=== PATIENT | female | born 1970 | race Caucasian/White ===

== ENCOUNTER 2018-03-10 16:15 | Emergency (ER) | payer MEDICARE, OTHER ==
[~2018-03-10] VITALS: Ht 160 cm; Wt 124.0 kg
[~2018-03-10 16:15] MED LIST: ALBU8HFA PO; CLIN300C85 PO; CYCL-1 PO; DICL-194 PO; DULO60CA64 PO; GUAI120018 PO; HYDR-3965 PO; LEVO150T8 PO; PANT-47 PO; VAL5T PO
[2018-03-10 16:52] LABS: BASOPHILS # (AUTO) 0.1 X10'3 (0-0.2); BASOPHILS % (AUTO) 1.3 % (0-1); EOSINOPHILS # (AUTO) 0.2 X10'3 (0-0.9); EOSINOPHILS % (AUTO) 2.1 % (0-6); HEMATOCRIT 40.9 % (35.0-45.0); HEMOGLOBIN 13.6 g/dl (12.0-16.0); LYMPHOCYTES # (AUTO) 2.9 X10'3 (1.1-4.8); LYMPHOCYTES % (AUTO) 33.5 % (21-51); MEAN CORPUSCULAR HEMOGLOBIN 28.7 PG (27.0-31.0); MEAN CORPUSCULAR HGB CONC 33.2 % (33.0-36.5); MEAN CORPUSCULAR VOLUME 86.3 FL (78-98); MEAN PLATELET VOLUME 7.5 FL (7.4-10.4); MONOCYTES # (AUTO) 0.4 X10'3 (0-0.9); MONOCYTES % (AUTO) 4.8 % (2-12); NEUTROPHILS # (AUTO) 5.1 X10'3 (1.8-7.7); NEUTROPHILS % (AUTO) 58.3 % (42-75); PLATELET COUNT 241 X10'3 (140-440); RED BLOOD COUNT 4.74 X10'6 (4.20-5.60); RED CELL DISTRIBUTION WIDTH 15.5 % (11.5-14.5); WHITE BLOOD COUNT 8.7 X10'3 (4.5-11.0)
[2018-03-10 16:59] LABS: PROTHROMBIN TIME 10.6 SECONDS (9.0-12.0)
[2018-03-10 17:05] LABS: ALANINE AMINOTRANSFERASE 35 U/L (12-78); ALBUMIN 3.5 G/DL (3.4-5.0); ALBUMIN/GLOBULIN RATIO 0.9 (1.1-1.5); ALKALINE PHOSPHATASE 119 IU/L (46-116); ANION GAP 11 (8-16); ASPARTATE AMINO TRANSFERASE 28 U/L (10-37); BILIRUBIN,TOTAL 0.3 MG/DL (0.1-1.0); BLOOD UREA NITROGEN 8 MG/DL (7-18); BUN/CREATININE RATIO 6.6 (6.6-38.0); CHLORIDE 100 MMOL/L (99-107); CREATININE 1.22 MG/DL (0.40-0.90); GLUCOSE 163 MG/DL (70-104); POTASSIUM 4.3 MMOL/L (3.5-5.1); SODIUM 138 MMOL/L (135-145); TOTAL CARBON DIOXIDE 27.2 MMOL/L (24-32); TOTAL PROTEIN 7.3 G/DL (6.4-8.2); eGFR 47 ML/MIN
[2018-03-10 17:14] LABS: CLARITY,URINE CLEAR (Clear); COLOR,URINE YELLOW (Yellow); GLUCOSE, URINE NEGATIVE (Neg); KETONES,URINE NEGATIVE (Neg); LEUKOCYTE ESTERASE ,URINE NEGATIVE (Neg); NITRITES, URINE NEGATIVE (Neg); OCCULT BLOOD,URINE NEGATIVE (Neg); PROTEIN,URINE NEGATIVE (Neg); UROBILINOGEN,URINE 0.2 E.U/dL (0.2-1.0)
[2018-03-10 17:16] LABS: URINE HCG NEGATIVE (NEG)
[2018-03-10 17:17] VITALS: BP 146/63
[2018-03-10 17:17] LABS: UA COLLECTION TYPE CLN CATCH MIDSTREAM
[2018-03-10] MEDS ORDERED: ondansetron/PF 4mg/2ml inj IV ONE (18:25)
[2018-03-10] MEDS ORDERED: morphine 4 MG/ML inj SYRINge IV ONE (18:25)
[2018-03-10] MEDS ORDERED: normal saline 1000ML IV soln IVB ONE (18:25)
[2018-03-10] MEDS ORDERED: LIDOcaine Viscous 15ml cup MM STA (18:37)
[2018-03-10] MEDS ORDERED: pantoprazole 40 MG vial IV ONE (18:40)
[2018-03-10] MEDS ORDERED: dicyclomine 10mg/ml 2ml ampule IM ONE (18:40)
[2018-03-10] MEDS ORDERED: mag hydrox/Alum hydrox/simeth 30ml oral suspension PO ONE (18:40)
[2018-03-10 22:22] LABS: OCCULT BLOOD STOOL NEGATIVE (Neg)
== END 2018-03-10 21:29 | disposition home or self-care (01) ==
LOC: ER 16:15
DX: K29.00 Acute gastritis without bleeding (principal); R10.13 Epigastric pain; K64.8 Other hemorrhoids; K64.4 Residual hemorrhoidal skin tags; I10 Essential (primary) hypertension; J44.9 Chronic obstructive pulmonary disease, unspecified; E11.9 Type 2 diabetes mellitus without complications; G89.29 Other chronic pain; F12.90 Cannabis use, unspecified, uncomplicated; Z90.49 Acquired absence of other specified parts of digestive tract; Z90.710 Acquired absence of both cervix and uterus; Z98.890 Other specified postprocedural states; Z88.0 Allergy status to penicillin; Z88.1 Allergy status to other antibiotic agents; Z79.2 Long term (current) use of antibiotics; Z79.899 Other long term (current) drug therapy
CPT/HCPCS: 36415; 71045; 74176; 80053; 81003; 81025; 82272; 84484; 85025; 85610; 93005; 96361; 96372; 96374; 96375; 99285; C9113; J0500; J2270; J2405; J7030

== ENCOUNTER 2018-04-12 15:10 | Emergency (ER) | payer MEDICARE, OTHER ==
[~2018-04-12] VITALS: Ht 160 cm; Wt 124.5 kg
[2018-04-12] MEDS ORDERED: epiNEPHrine 1 mg/ml inj SQ STA (15:19)
[2018-04-12] MEDS ORDERED: methylPREDNISolone sod succ 125mg/2ml vial IV ONE (15:20)
[2018-04-12] MEDS ORDERED: normal saline 1000ML IV soln IVB ONE (15:20)
[2018-04-12] MEDS ORDERED: diphenhydrAMINE 50 mg/ml inj IV ONE (15:20)
[2018-04-12 15:39] LABS: BASOPHILS # (AUTO) 0.1 X10'3 (0-0.2); BASOPHILS % (AUTO) 1.2 % (0-1); EOSINOPHILS # (AUTO) 0.2 X10'3 (0-0.9); EOSINOPHILS % (AUTO) 2.1 % (0-6); HEMATOCRIT 39.4 % (35.0-45.0); HEMOGLOBIN 13.3 g/dl (12.0-16.0); LYMPHOCYTES # (AUTO) 2.7 X10'3 (1.1-4.8); LYMPHOCYTES % (AUTO) 29.6 % (21-51); MEAN CORPUSCULAR HEMOGLOBIN 28.4 PG (27.0-31.0); MEAN CORPUSCULAR HGB CONC 33.7 % (33.0-36.5); MEAN CORPUSCULAR VOLUME 84.3 FL (78-98); MONOCYTES # (AUTO) 0.7 X10'3 (0-0.9); MONOCYTES % (AUTO) 7.4 % (2-12); NEUTROPHILS # (AUTO) 5.5 X10'3 (1.8-7.7); NEUTROPHILS % (AUTO) 59.7 % (42-75); PLATELET COUNT 228 X10'3 (140-440); RED BLOOD COUNT 4.67 X10'6 (4.20-5.60); RED CELL DISTRIBUTION WIDTH 15.6 % (11.5-14.5); WHITE BLOOD COUNT 9.2 X10'3 (4.5-11.0)
[2018-04-12] MEDS ORDERED: normal saline 1000ML IV soln IV ONE (15:40)
[2018-04-12] MEDS ORDERED: tranexamic acid 100mg/ml inj. IV ONE (15:40)
[2018-04-12] MEDS ORDERED: tranexamic acid inj. 1,250 MG in normal saline 100ml IV soln 100 ML IV ONE (15:45)
[2018-04-12] MEDS ORDERED: iohexol 300mg/ml 100ml inj. ONE (15:53)
[2018-04-12 15:56] LABS: ALANINE AMINOTRANSFERASE 30 U/L (12-78); ALBUMIN 3.4 G/DL (3.4-5.0); ALBUMIN/GLOBULIN RATIO 0.9 (1.1-1.5); ALKALINE PHOSPHATASE 113 IU/L (46-116); ANION GAP 10 (8-16); ASPARTATE AMINO TRANSFERASE 18 U/L (10-37); BILIRUBIN,TOTAL 0.4 MG/DL (0.1-1.0); BLOOD UREA NITROGEN 6 MG/DL (7-18); BUN/CREATININE RATIO 5.4 (6.6-38.0); CALCIUM 9.1 MG/DL (8.5-10.1); CHLORIDE 99 MMOL/L (99-107); CREATININE 1.11 MG/DL (0.40-0.90); GLUCOSE 147 MG/DL (70-104); SODIUM 136 MMOL/L (135-145); TOTAL CARBON DIOXIDE 26.8 MMOL/L (24-32); TOTAL PROTEIN 7.3 G/DL (6.4-8.2); eGFR 53 ML/MIN
[2018-04-12] MEDS ORDERED: morphine 4 MG/ML inj SYRINge IV ONE (16:05)
[2018-04-12] MEDS ORDERED: famotidine/PF 10 mg/ml inj IV ONE (16:50)
[2018-04-12 17:25] VITALS: BP 124/70
[2018-04-12] MEDS ORDERED: ketorolac trometh. 30mg/ml inj. IV ONE (17:25)
[2018-04-12] MEDS ORDERED: CLIN150C2 PO (17:30)
[2018-04-12] MEDS ORDERED: HYDR-569 PO (17:30)
[2018-04-12] MEDS ORDERED: clindamycin phosphate inj 600 MG in normal saline 50ml IV soln 50 ML IV ONE (17:30)
[2018-04-12] MEDS ORDERED: ONDA4TAB9 SL (17:30)
[2018-04-12] MEDS ORDERED: clindamycin 600mg/D5W 50ml 50 ML IV ONE (17:40)
== END 2018-04-12 18:25 | disposition home or self-care (01) ==
LOC: ER 15:11
DX: K04.7 Periapical abscess without sinus (principal); K05.30 Chronic periodontitis, unspecified; I10 Essential (primary) hypertension; J44.9 Chronic obstructive pulmonary disease, unspecified; E11.9 Type 2 diabetes mellitus without complications; G89.29 Other chronic pain; M54.9 Dorsalgia, unspecified; F12.90 Cannabis use, unspecified, uncomplicated; Z90.710 Acquired absence of both cervix and uterus; Z90.49 Acquired absence of other specified parts of digestive tract; Z88.1 Allergy status to other antibiotic agents; Z88.0 Allergy status to penicillin
CPT/HCPCS: 36415; 70487; 71045; 80053; 83605; 83880; 84484; 85025; 87040; 93005; 96365; 96367; 96372; 96375; 99285; J0171; J1200; J1885; J2270; J2930; J3490; J7030; Q9967; 99291; J7040

== ENCOUNTER 2018-05-11 14:22 | Emergency (ER) | payer MEDICARE, OTHER ==
[~2018-05-11] VITALS: Ht 157.5 cm; Wt 122.6 kg
[~2018-05-11 14:22] MED LIST changes: +HYDR-569 PO
[2018-05-11 15:04] LABS: URINE HCG NEGATIVE (NEG)
[2018-05-11 15:05] LABS: CLARITY,URINE CLOUDY (Clear); COLOR,URINE YELLOW (Yellow); GLUCOSE, URINE NEGATIVE (Neg); KETONES,URINE NEGATIVE (Neg); LEUKOCYTE ESTERASE ,URINE LARGE (Neg); NITRITES, URINE POSITIVE (Neg); OCCULT BLOOD,URINE LARGE (Neg); PROTEIN,URINE 30 mg/dl (Neg); UA COLLECTION TYPE CLN CATCH MIDSTREAM; UROBILINOGEN,URINE 0.2 E.U/dL (0.2-1.0)
[2018-05-11 15:17] LABS: WBC,URINE TNTC /HPF (0-4)
[2018-05-11 15:18] LABS: RBC,URINE NONE SEEN /HPF (0-2)
[2018-05-11 15:19] LABS: BACTERIA,URINE 3+ /HPF (Neg)
[2018-05-11 15:20] LABS: SQUAMOUS EPITHELIAL CELL,UR FEW /LPF (FEW)
[2018-05-11] MEDS ORDERED: ketorolac tromethamine 15mg/ml inj. IV ONE (15:20)
[2018-05-11] MEDS ORDERED: normal saline 1000ML IV soln IVB ONE (15:20)
[2018-05-11 15:50] LABS: BASOPHILS % (AUTO) 0.5 % (0-1); EOSINOPHILS # (AUTO) 0.2 X10'3 (0-0.9); EOSINOPHILS % (AUTO) 2.2 % (0-6); HEMATOCRIT 37.5 % (35.0-45.0); HEMOGLOBIN 12.4 g/dl (12.0-16.0); LYMPHOCYTES # (AUTO) 1.7 X10'3 (1.1-4.8); LYMPHOCYTES % (AUTO) 18.1 % (21-51); MEAN CORPUSCULAR HEMOGLOBIN 28.1 PG (27.0-31.0); MEAN CORPUSCULAR VOLUME 85.1 FL (78-98); MEAN PLATELET VOLUME 7.3 FL (7.4-10.4); MONOCYTES # (AUTO) 0.5 X10'3 (0-0.9); MONOCYTES % (AUTO) 5.6 % (2-12); NEUTROPHILS % (AUTO) 73.6 % (42-75); PLATELET COUNT 206 X10'3 (140-440); RED BLOOD COUNT 4.41 X10'6 (4.20-5.60); RED CELL DISTRIBUTION WIDTH 15.8 % (11.5-14.5); WHITE BLOOD COUNT 9.5 X10'3 (4.5-11.0)
[2018-05-11] MEDS ORDERED: sulfamethoxazole/trimethoprim DS (800/160mg) tablet PO ONE (15:55)
[2018-05-11] MEDS ORDERED: SULF1TAB49 PO (15:59)
[2018-05-11 16:07] LABS: ALANINE AMINOTRANSFERASE 24 U/L (12-78); ALBUMIN 3.3 G/DL (3.4-5.0); ALBUMIN/GLOBULIN RATIO 0.9 (1.1-1.5); ALKALINE PHOSPHATASE 114 IU/L (46-116); ANION GAP 9 (8-16); ASPARTATE AMINO TRANSFERASE 28 U/L (10-37); BILIRUBIN,TOTAL 0.4 MG/DL (0.1-1.0); BLOOD UREA NITROGEN 10 MG/DL (7-18); BUN/CREATININE RATIO 10.2 (6.6-38.0); CALCIUM 8.8 MG/DL (8.5-10.1); CHLORIDE 101 MMOL/L (99-107); CREATININE 0.98 MG/DL (0.40-0.90); GLUCOSE 152 MG/DL (70-104); POTASSIUM 4.2 MMOL/L (3.5-5.1); SODIUM 137 MMOL/L (135-145); TOTAL CARBON DIOXIDE 27.4 MMOL/L (24-32); eGFR 61 ML/MIN
[2018-05-11] MEDS ORDERED: POLY17PO10 PO (16:31)
[2018-05-11] MEDS ORDERED: magnesium citrate 296ml oral solution PO ONE (16:35)
[2018-05-11 16:43] VITALS: BP 165/83
== END 2018-05-11 16:57 | disposition home or self-care (01) ==
LOC: ER 14:22
DX: N10 Acute pyelonephritis (principal); K59.00 Constipation, unspecified; R10.84 Generalized abdominal pain; R10.31 Right lower quadrant pain; I10 Essential (primary) hypertension; J44.9 Chronic obstructive pulmonary disease, unspecified; E11.9 Type 2 diabetes mellitus without complications; G89.29 Other chronic pain; F12.90 Cannabis use, unspecified, uncomplicated; Z90.49 Acquired absence of other specified parts of digestive tract; Z90.710 Acquired absence of both cervix and uterus; Z98.890 Other specified postprocedural states; Z88.0 Allergy status to penicillin; Z88.1 Allergy status to other antibiotic agents; Z79.899 Other long term (current) drug therapy
CPT/HCPCS: 36415; 80053; 81001; 81025; 83605; 85025; 87077; 87088; 87186; 96374; 99284; J1885

== ENCOUNTER 2018-11-25 14:03 | Emergency (ER) | payer MEDICARE, OTHER ==
[~2018-11-25] VITALS: Ht 160 cm; Wt 122.7 kg
[~2018-11-25 14:03] MED LIST changes: +CLIN-96 PO; -CLIN300C85 PO; +HYDR-4383 PO; -HYDR-569 PO
[2018-11-25 15:02] LABS: BASOPHILS % (AUTO) 0.6 % (0-1); EOSINOPHILS # (AUTO) 0.1 X10'3 (0-0.9); EOSINOPHILS % (AUTO) 1.7 % (0-6); HEMATOCRIT 34.9 % (35.0-45.0); HEMOGLOBIN 11.8 g/dl (12.0-16.0); LYMPHOCYTES # (AUTO) 2.2 X10'3 (1.1-4.8); LYMPHOCYTES % (AUTO) 29.6 % (21-51); MEAN CORPUSCULAR HGB CONC 33.8 g/dL (33.0-36.5); MEAN CORPUSCULAR VOLUME 85.8 FL (78-98); MEAN PLATELET VOLUME 7.4 FL (7.4-10.4); MONOCYTES # (AUTO) 0.5 X10'3 (0-0.9); MONOCYTES % (AUTO) 6.8 % (2-12); NEUTROPHILS # (AUTO) 4.6 X10'3 (1.8-7.7); NEUTROPHILS % (AUTO) 61.3 % (42-75); PLATELET COUNT 177 X10'3 (140-440); RED BLOOD COUNT 4.06 X10'6 (4.20-5.60); RED CELL DISTRIBUTION WIDTH 16.5 % (11.5-14.5); WHITE BLOOD COUNT 7.5 X10'3 (4.5-11.0)
[2018-11-25 15:06] LABS: PARTIAL THROMBOPLASTIN TIME 28 SECONDS (22-32)
[2018-11-25 15:09] LABS: ALANINE AMINOTRANSFERASE 40 U/L (12-78); ALBUMIN 2.9 G/DL (3.4-5.0); ALBUMIN/GLOBULIN RATIO 0.8 (1.1-1.5); ALKALINE PHOSPHATASE 119 IU/L (46-116); ANION GAP 8 (8-16); ASPARTATE AMINO TRANSFERASE 218 U/L (10-37); BILIRUBIN,TOTAL 0.2 MG/DL (0.1-1.0); BLOOD UREA NITROGEN 14 MG/DL (7-18); BUN/CREATININE RATIO 12.8 (6.6-38.0); CALCIUM 8.5 MG/DL (8.5-10.1); CHLORIDE 98 MMOL/L (99-107); CREATININE 1.09 MG/DL (0.40-0.90); GLUCOSE 295 MG/DL (70-104); POTASSIUM 4.2 MMOL/L (3.5-5.1); SODIUM 135 MMOL/L (135-145); TOTAL CARBON DIOXIDE 29.3 MMOL/L (24-32); TOTAL PROTEIN 6.4 G/DL (6.4-8.2); eGFR 54 ML/MIN
[2018-11-25 15:11] LABS: TROPONIN I < 0.04 NG/ML (0.0-0.05)
--- NOTE | 2018-11-25 15:53 | NUR ---
Stroke alert called off at [address] Echeverria.
[2018-11-25 16:55] LABS: URINE AMPHETAMINE SCREEN NEGATIVE (Neg); URINE BARBITUATE SCREEN NEGATIVE (Neg); URINE BENZODIAZEPINES SCREEN POSITIVE (Neg); URINE CANNABINOID SCREEN POSITIVE (Neg); URINE COCAINE SCREEN NEGATIVE (Neg); URINE METHADONE SCREEN NEGATIVE (Neg); URINE OPIATE SCREEN POSITIVE (Neg); URINE PHENCYCLIDINE SCREEN NEGATIVE (Neg)
[2018-11-25] MEDS ORDERED: normal saline 1000ML IV soln IVB ONE (17:05)
[2018-11-25 17:42] VITALS: BP 116/73
[2018-11-25] MEDS ORDERED: ketorolac trometh. 30mg/ml inj. IV ONE (17:45)
[2018-11-25] MEDS ORDERED: proCHLORperazine 10 MG/2 ml inj IV ONE (17:45)
[2018-11-25] MEDS ORDERED: METF750T2 PO (17:59)
[2018-11-25] MEDS ORDERED: GLYB5TAB7 PO (17:59)
--- NOTE | 2018-11-25 18:18 | NUR ---
CALLED [facility] @ 18:16 FOR RIDE HOME
== END 2018-11-25 18:37 | disposition home or self-care (01) ==
LOC: ER 14:03
DX: E11.65 Type 2 diabetes mellitus with hyperglycemia (principal); R51 Headache; R53.1 Weakness; E78.00 Pure hypercholesterolemia, unspecified; I10 Essential (primary) hypertension; G89.29 Other chronic pain; F12.90 Cannabis use, unspecified, uncomplicated; Z91.14 Patient's other noncompliance with medication regimen; Z90.710 Acquired absence of both cervix and uterus; Z98.890 Other specified postprocedural states; Z88.0 Allergy status to penicillin; Z88.1 Allergy status to other antibiotic agents; Z79.899 Other long term (current) drug therapy
CPT/HCPCS: 36415; 70450; 71045; 80053; 80305; 82948; 84484; 85025; 85610; 85730; 93005; 96374; 96375; 99284; J0780; J1885; J7030; 96361

== ENCOUNTER 2019-05-09 13:42 | Emergency (ER) | payer MEDICARE, OTHER ==
[~2019-05-09] VITALS: Ht 160 cm; Wt 97.7 kg
[~2019-05-09 13:42] MED LIST changes: +CLIN-90 PO; -CLIN-96 PO; -DULO60CA64 PO; +DULO60CA65 PO; +GLYB5TAB7 PO
[2019-05-09 14:03] VITALS: BP 130/86
== END 2019-05-09 14:43 | disposition home or self-care (01) ==
LOC: ER 13:43
DX: L02.811 Cutaneous abscess of head [any part, except face] (principal); L65.8 Other specified nonscarring hair loss; L73.8 Other specified follicular disorders; E78.00 Pure hypercholesterolemia, unspecified; I10 Essential (primary) hypertension; J44.9 Chronic obstructive pulmonary disease, unspecified; E11.9 Type 2 diabetes mellitus without complications; G89.29 Other chronic pain; F12.90 Cannabis use, unspecified, uncomplicated; Z90.49 Acquired absence of other specified parts of digestive tract; Z90.710 Acquired absence of both cervix and uterus; Z98.890 Other specified postprocedural states; Z88.0 Allergy status to penicillin; Z88.1 Allergy status to other antibiotic agents; Z79.899 Other long term (current) drug therapy
CPT/HCPCS: 99281

== ENCOUNTER 2022-07-15 07:17 | Day surgery (SDC) | payer MEDICARE ==
[~2022-07-15] VITALS: Ht 160 cm; Wt 89.1 kg
[2022-07-15] VITALS (10 sets, daily range): BP systolic 130–148; BP diastolic 64–83
[~2022-07-15 07:17] MED LIST changes: +ASPI-1071 PO; +ATOR-2 PO; -CLIN-90 PO; -CYCL-1 PO; +DAPA10TA PO; -DICL-194 PO; -DULO60CA65 PO; +GABA600T13 PO; -GLYB5TAB7 PO; -GUAI120018 PO; -HYDR-3965 PO; -HYDR-4383 PO; +METF-1203 PO; +OXYC1TAB17 PO; -PANT-47 PO; +PANT40TA54 PO; +SERT-434 PO; -VAL5T PO
[2022-07-15] MEDS ORDERED: diphenhydrAMINE 25mg capsule PO PRN (07:35)
[2022-07-15] MEDS ORDERED: normal saline 1,000 ML IV SCH (07:35)
[2022-07-15] MEDS ORDERED: LORazepam 0.5 MG tablet PO PRN (07:35)
[2022-07-15] MEDS ORDERED: SUPER BEET PO (07:54)
[2022-07-15] MEDS ORDERED: LOSA25TA96 PO (07:54)
[2022-07-15] MEDS ORDERED: SUCR1TAB PO (07:54)
[2022-07-15] MEDS ORDERED: NITR0.4T51 SL (07:54)
[2022-07-15] MEDS ORDERED: ALBU18HF2 INH (07:54)
[2022-07-15 08:28] LABS: BASOPHILS # (AUTO) 0.1 X10'3 (0-0.2); BASOPHILS % (AUTO) 0.5 % (0-1); EOSINOPHILS # (AUTO) 0.2 X10'3 (0-0.9); EOSINOPHILS % (AUTO) 1.6 % (0-6); HEMATOCRIT 47.1 % (35.0-45.0); LYMPHOCYTES # (AUTO) 2.8 X10'3 (1.1-4.8); LYMPHOCYTES % (AUTO) 26.7 % (21-51); MEAN CORPUSCULAR HEMOGLOBIN 30.7 PG (27.0-31.0); MEAN CORPUSCULAR HGB CONC 33.9 g/dL (33.0-36.5); MEAN CORPUSCULAR VOLUME 90.6 FL (78-98); MEAN PLATELET VOLUME 8.1 FL (7.4-10.4); MONOCYTES # (AUTO) 0.7 X10'3 (0-0.9); MONOCYTES % (AUTO) 6.8 % (2-12); NEUTROPHILS # (AUTO) 6.6 X10'3 (1.8-7.7); NEUTROPHILS % (AUTO) 64.4 % (42-75); PLATELET COUNT 193 X10'3 (140-440); RED CELL DISTRIBUTION WIDTH 14.1 % (11.5-14.5); WHITE BLOOD COUNT 10.3 X10'3 (4.5-11.0)
[2022-07-15 08:30] LABS: ALBUMIN 3.9 G/DL (3.4-5.0); BLOOD UREA NITROGEN 20 MG/DL (7-18); BUN/CREATININE RATIO 22.7 (6.6-38.0); CALCIUM 9.2 MG/DL (8.5-10.1); CREATININE 0.88 MG/DL (0.40-0.90); GLUCOSE 139 MG/DL (70-104); TOTAL CARBON DIOXIDE 28.2 MMOL/L (24-32); eGFR 68 ML/MIN
[2022-07-15 08:34] LABS: APTT 29 SECONDS (22-32)
--- NOTE | 2022-07-15 09:30 | NUR ---
Pt c/o 11/16 jaw pain and chest heaviness. States this is what she's been having at home. Called to lab courier and spoke to Millicent LOZANO. Millicent states to get an EKG and call with results (notified her we just did the EKG about 15mins before this event but still wants a new one). EKG shows NSR. CAlled results to Millicent, no further orders from Dr. Moy
--- NOTE | 2022-07-15 09:45 | NUR ---
Vital signs remain stable. BP 130s/70s, HR ranging from high 40s to mid 60s.
--- NOTE | 2022-07-15 10:15 | NUR ---
Pt states pain has resolved.
[2022-07-15] MEDS ORDERED: fentaNYL/PF 50MCG/1 ML 2ML syringe ONE (10:47)
[2022-07-15] MEDS ORDERED: heparin 1,000unit/ml 10ml vial 10 ML ONE (10:47)
[2022-07-15] MEDS ORDERED: midazolam 1 mg/ML 2ml injection ONE (10:47)
[2022-07-15] MEDS ORDERED: nitroGLYCERIN-Tridil 50MG/D5W 250 ML IV ONE (10:47)
[2022-07-15] MEDS ORDERED: iohexol 350MG/ML 100ml bottle IV ONE (10:47)
[2022-07-15] MEDS ORDERED: verapamil 2.5 mg/ml inj IV ONE (10:47)
[2022-07-15] MEDS ORDERED: LIDOcaine 1% (10mg/ml) 2ml vial ONE (10:48)
[2022-07-15 11:49] LABS: ANION GAP 9 (8-16); CHLORIDE 101 MMOL/L (99-107); POTASSIUM 4.2 MMOL/L (3.5-5.1); SODIUM 138 MMOL/L (135-145)
[2022-07-15 11:54] LABS: ISTAT HGB ART 14.3 g/dl (12.0-16.0); ISTAT Hct ART 42 %PCV (35-45); ISTAT O2 SATURATION ARTERIAL 97 % (95-98); ISTAT SOURCE ART
[2022-07-15 12:04] LABS: ISTAT Hct MIX 42 %PCV (35-45); ISTAT O2 SATURATION MIX VENOUS 61 % (60-80); ISTAT SOURCE VEN
[2022-07-15] MEDS ORDERED: normal saline 1000ml 1,000 ML IV SCH (12:35)
== END 2022-07-15 17:00 | disposition home or self-care (01) ==
LOC: SSTAY O 07:17
PROVIDERS: ATTEND Internal Medicine Cardiovascular Disease
DX: I25.10 Atherosclerotic heart disease of native coronary artery without angina pectoris (principal); I10 Essential (primary) hypertension; E11.9 Type 2 diabetes mellitus without complications; K21.9 Gastro-esophageal reflux disease without esophagitis; J44.9 Chronic obstructive pulmonary disease, unspecified; K22.70 Barrett's esophagus without dysplasia; E78.5 Hyperlipidemia, unspecified; F17.210 Nicotine dependence, cigarettes, uncomplicated; Z82.49 Family history of ischemic heart disease and other diseases of the circulatory system; Z98.890 Other specified postprocedural states; Z88.0 Allergy status to penicillin; Z91.048 Other nonmedicinal substance allergy status; Z88.1 Allergy status to other antibiotic agents; Z79.82 Long term (current) use of aspirin; Z79.84 Long term (current) use of oral hypoglycemic drugs; Z79.899 Other long term (current) drug therapy; Z79.01 Long term (current) use of anticoagulants
CPT/HCPCS: 36415; 76937; 80048; 82803; 82948; 85014; 85025; 85610; 85730; 93005; 93460; 99152; 99153; A6258; C1751; C1769; C1894; J1644; J2250; J3010; J3490; J7030; Q0163; Q9967; A6402; C1725

== ENCOUNTER 2024-01-10 16:19 | Emergency (ER) | payer MEDICARE, MEDICAID ==
[~2024-01-10] VITALS: Ht 160 cm; Wt 91.3 kg
[~2024-01-10 16:19] MED LIST changes: +ALBU18HF2 INH; -ALBU8HFA PO; -GABA600T13 PO; +LOSA-415 PO; -METF-1203 PO; +NITR0.4T51 SL; -PANT40TA54 PO; -SERT-434 PO; +SUCR1TAB PO; +SUPER BEET PO
[2024-01-10 19:29] VITALS: BP 181/87; PULSE 76; RESP 14; TEMP 97.9; O2SAT 100
[2024-01-10 22:15] LABS: BASOPHILS % (AUTO) 0.3 % (0-1); EOSINOPHILS # (AUTO) 0.1 X10'3 (0-0.9); HEMOGLOBIN 14.5 g/dl (12.0-16.0); LYMPHOCYTES # (AUTO) 2.9 X10'3 (1.1-4.8); LYMPHOCYTES % (AUTO) 37.8 % (21-51); MEAN CORPUSCULAR HEMOGLOBIN 29.9 PG (27.0-31.0); MEAN CORPUSCULAR HGB CONC 33.6 g/dL (33.0-36.5); MEAN PLATELET VOLUME 7.9 FL (7.4-10.4); MONOCYTES # (AUTO) 0.5 X10'3 (0-0.9); MONOCYTES % (AUTO) 6.9 % (2-12); PLATELET COUNT 159 X10'3 (140-440); RED BLOOD COUNT 4.83 X10'6 (4.20-5.60); WHITE BLOOD COUNT 7.6 X10'3 (4.5-11.0)
[2024-01-10 22:33] LABS: ALANINE AMINOTRANSFERASE 29 U/L (12-78); ALBUMIN 3.4 G/DL (3.4-5.0); ALBUMIN/GLOBULIN RATIO 1.1 (1.1-1.5); ALKALINE PHOSPHATASE 91 IU/L (46-116); ANION GAP 5 (8-16); ASPARTATE AMINO TRANSFERASE 17 U/L (10-37); BILIRUBIN,TOTAL 0.6 MG/DL (0.1-1.0); BLOOD UREA NITROGEN 8 MG/DL (7-18); BUN/CREATININE RATIO 10.5 (10.0-20.0); CALCIUM 9.1 MG/DL (8.5-10.1); CHLORIDE 105 MMOL/L (99-107); CREATININE 0.76 MG/DL (0.40-0.90); GLUCOSE 110 MG/DL (70-104); LIPASE 17 U/L (16-77); POTASSIUM 4.1 MMOL/L (3.5-5.1); SODIUM 139 MMOL/L (135-145); TOTAL CARBON DIOXIDE 28.8 MMOL/L (24-32); TOTAL PROTEIN 6.6 G/DL (6.4-8.2); eCRCL 72 ML/MIN; eGFR 80 ML/MIN
== END 2024-01-10 23:42 | disposition left against medical advice (07) ==
LOC: ER 16:19
DX: K59.00 Constipation, unspecified (principal); R10.9 Unspecified abdominal pain; R11.0 Nausea; Z53.21 Procedure and treatment not carried out due to patient leaving prior to being seen by health care provider
CPT/HCPCS: 36415; 80053; 83690; 85025